=== PATIENT | male | born 1995 | race African-American/Black ===

== ENCOUNTER 2018-12-31 20:14 | Emergency (ER) | payer OTHER ==
--- NOTE | 2018-12-31 20:24 | ED Physician Documentation ---
History of Present Illness - Stated complaint Stated Complaint: N/DIZZINESS - Chief complaint Chief Complaint: General - History obtained from History obtained from: Patient - History of Present Illness Timing: Today (this morning) Improved by: nothing Worsened by: rest - Additonal information Additional information: c/o "extreme body aches", subjective fevers (feels as though he has been having fevers, but did not take temperature at home), nausea but no vomiting, poor appetite, mild photophobia, generalized RODRIGUEZ. Review of Systems Constitutional: reports: Fever (subjective), Myalgias, Fatigue Throat: reports: Sore throat Cardiac: reports: Reviewed and negative Respiratory: reports: Reviewed and negative GI: reports: Nausea. denies: Abdominal Pain, Vomiting PD PAST MEDICAL HISTORY - Past Medical History Past Medical History: No - Past Surgical History Past Surgical History: No - Present Medications Home Medications: Ambulatory Orders Medication Instructions Recorded Confirmed Ibuprofen 600 mg PO Q6HR PRN #14 tablet 12/31/18 Ondansetron Odt [Zofran] 4 mg TL Q6H PRN #10 tablet 12/31/18 - Allergies Allergies/Adverse Reactions: Allergies Allergy/AdvReac Type Severity Reaction Status Date / Time No Known Drug Allergies Allergy Verified 12/31/18 20:21 - Living Situation Living Arrangement: reports: At home PD ED PE NORMAL - Vitals Vital signs reviewed: Yes - General General: Alert and oriented X 3, No acute distress, Well developed/nourished - HEENT HEENT: PERRL, EOMI, Moist mucous membranes - Neck Neck: Supple, no meningeal sign - Cardiac Cardiac: RRR, No murmur - Respiratory Respiratory: No respiratory distress, Clear bilaterally - Abdomen Abdomen: Soft, Non tender Results - Vitals Vitals: Vital Signs - 24 hr 12/31/18 20:19 Temperature 37.5 C Heart Rate 110 H Respiratory 18 Rate Blood Pressure 103/63 O2 Saturation 100 Oxygen O2 Source Room air - Labs Labs: Laboratory Tests 12/31/18 20:33 Influenza A (Rapid) Negative Influenza B (Rapid) Negative PD MEDICAL DECISION MAKING - ED course Complexity details: re-evaluated patient, considered differential, d/w patient ED course: Patient reported symptomatic improvement after PO ibuprofen and zofran Departure - Departure Disposition: 01 Home, Self Care Clinical Impression: Viral syndrome Condition: Good Instructions: ED Viral Syndrome Follow-Up: FREYA DEL REAL [Primary Care Provider] - (2-3 days if symptoms persist) Prescriptions: Ibuprofen 600 mg PO Q6HR PRN #14 tablet PRN Reason: Pain Ondansetron Odt [Zofran] 4 mg TL Q6H PRN #10 tablet PRN Reason: Nausea / Vomiting Forms: Activity restrictions Discharge Date/Time: 12/31/18 21:36
[2018-12-31 20:26] VITALS: BP 103/63
[2018-12-31] MEDS ORDERED: ONDANSETRON ODT 4 MG TABLET TL STA (20:36)
[2018-12-31] MEDS ORDERED: IBUPROFEN 600 MG TABLET PO STA (20:36)
== END 2018-12-31 21:36 | disposition home or self-care (01) ==
LOC: ED 20:14
DX: B34.9 Viral infection, unspecified (principal)
CPT/HCPCS: 87275; 87276; 99283; A9270; Q0162